=== PATIENT | male | born 1970 | race Two or more races ===

== ENCOUNTER 2017-05-29 12:52 | Emergency (ER) | payer OTHER ==
--- NOTE | 2017-05-29 15:33 | RADIOLOGY REPORT (SQ) ---
EXAM DESCRIPTION: CHEST PA/LAT COMPLETED DATE/TIME: 05/29/2017 3:17 pm REASON FOR STUDY: pain COMPARISON: 2014. TECHNIQUE: Frontal and lateral radiographic views of the chest acquired. NUMBER OF VIEWS: Two view. LIMITATIONS: None. FINDINGS: LUNGS AND PLEURA: No opacities, masses or pneumothorax. No pleural effusion. MEDIASTINUM AND HILAR STRUCTURES: No masses or contour abnormalities. HEART AND VASCULAR STRUCTURES: Heart normal size. No evidence for failure. BONES: No acute findings. HARDWARE: None in the chest. OTHER: No other significant finding. IMPRESSION: NO SIGNIFICANT RADIOGRAPHIC FINDING IN THE CHEST. TECHNICAL DOCUMENTATION: JOB ID: [id number] [employer]- All Rights Reserved
[2017-05-29 16:02] LABS: ABSOLUTE EOSINOPHILS # (AUTO) 0.1 10^3/uL (0.0-0.6); ABSOLUTE LYMPHOCYTES (AUTO) 1.9 10^3/uL (0.5-4.7); ABSOLUTE MONOCYTES (AUTO) 0.4 10^3/uL (0.1-1.4); ABSOLUTE NEUT (AUTO) 3.5 10^3/uL (1.7-8.2); BASOPHILS % (AUTO) 0.4 % (0-2); HEMATOCRIT 43.4 % (37.9-51.0); HEMOGLOBIN 14.9 g/dL (13.5-17.0); LYMPHOCYTES % (AUTO) 32.6 % (13-45); MEAN CORPUSCULAR HGB CONC 34.3 g/dL (32.0-36.0); MEAN CORPUSCULAR VOLUME 82 fl (80-97); PLATELET COUNT 171 10^3/uL (150-450); RED BLOOD COUNT 5.31 10^6/uL (4.35-5.55); RED CELL DISTRIBUTION WIDTH 13.9 % (11.5-14.0); TOTAL CELLS COUNTED % (AUTO) 100 %; WHITE BLOOD COUNT 5.9 10^3/uL (4.0-10.5)
[2017-05-29 16:24] LABS: ALANINE AMINOTRANSFERASE 38 U/L (21-72); ALBUMIN 4.5 g/dL (3.5-5.0); ALKALINE PHOSPHATASE 97 U/L (38-126); ANION GAP 11 (5-19); ASPARTATE AMINO TRANSFERASE 28 U/L (17-59); BILIRUBIN,DIRECT 0.1 mg/dL (0.0-0.4); BILIRUBIN,TOTAL 0.2 mg/dL (0.2-1.3); BLOOD UREA NITROGEN 15 mg/dL (7-20); CALCIUM 9.9 mg/dL (8.4-10.2); CARBON DIOXIDE 29 mmol/L (22-30); CHLORIDE 103 mmol/L (98-107); GLUCOSE 90 mg/dL (75-110); POTASSIUM 4.4 mmol/L (3.6-5.0); SODIUM 143.4 mmol/L (137-145); TOTAL PROTEIN 7.6 g/dL (6.3-8.2)
--- NOTE | 2017-05-29 17:44 | ER Document Report ---
ED Cardiac - General Chief Complaint: Chest Pain Stated Complaint: CHEST PAIN Time Seen by Provider: 05/29/17 14:45 Mode of Arrival: Ambulatory Information source: Patient Notes: Patient complains of substernal chest pain. He denies any trauma but does do 25 push-ups a day. 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 No previous cardiac history. The pain is worse with movement and better with rest. He denies any associated symptoms such as shortness of breath sweating or nausea. No cough cold or congestion. No other known trauma. No history of DVTs or PEs. No known radiation of the pain. The pain is mild to moderate and intermittent lasting several seconds at a time. no Previous cardiac evaluation. TRAVEL OUTSIDE OF THE [place] IN LAST 30 DAYS: No - Related Data Allergies/Adverse Reactions: No Known Allergies Allergy (Verified 05/29/17 12:53) Past Medical History - General Information source: Patient - Social History Smoking Status: Unknown if Ever Smoked Chew tobacco use (# tins/day): No Frequency of alcohol use: None Drug Abuse: None Family History: Reviewed & Not Pertinent Patient has suicidal ideation: No Patient has homicidal ideation: No Neurological Medical History: Reports: Hx Migraine Renal/ Medical History: Denies: Hx Peritoneal Dialysis - Immunizations Hx Diphtheria, Pertussis, Tetanus Vaccination: No Review of Systems - Review of Systems Constitutional: denies: Chills, Fever Cardiovascular: Chest pain. denies: Palpitations Respiratory: denies: Cough, Short of breath Gastrointestinal: denies: Abdominal pain, Vomiting -: Yes All other systems reviewed and negative Physical Exam - Vital signs Vitals: Temp Pulse Resp BP Pulse Ox 99.0 F 79 16 128/78 H 98 05/29/17 13:10 05/29/17 13:10 05/29/17 13:10 05/29/17 13:10 05/29/17 13:10 Interpretation: Normal - General General appearance: Appears well, Alert - HEENT Head: Normocephalic, Atraumatic Eyes: Normal Pupils: PERRL - Respiratory Respiratory status: No respiratory distress Chest status: Nontender Breath sounds: Normal Chest palpation: Normal - Cardiovascular Rhythm: Regular Heart sounds: Normal auscultation Murmur: No - Abdominal Inspection: Normal Distension: No distension Bowel sounds: Normal Tenderness: Nontender Organomegaly: No organomegaly - Back Back: Normal, Nontender - Extremities General upper extremity: Normal inspection, Nontender, Normal color, Normal ROM , Normal temperature General lower extremity: Normal inspection, Nontender, Normal color, Normal ROM , Normal temperature, Normal weight bearing. No: Junito's sign - Neurological Neuro grossly intact: Yes Cognition: Normal Orientation: AAOx4 Hammad Coma Scale Eye Opening: Spontaneous Hammad Coma Scale Verbal: Oriented Hammad Coma Scale Motor: Obeys Commands Hammad Coma Scale Total: 15 Speech: Normal Motor strength normal: LUE, RUE, LLE, RLE Sensory: Normal - Psychological Associated symptoms: Normal affect, Normal mood - Skin Skin Temperature: Warm Skin Moisture: Dry Skin Color: Normal Course - Vital Signs Vital signs: Temp Pulse Resp BP Pulse Ox 99.0 F 79 16 128/78 H 98 05/29/17 13:10 05/29/17 13:10 05/29/17 13:10 05/29/17 13:10 05/29/17 13:10 - Laboratory Result Diagrams: 05/29/17 15:40 05/29/17 15:40 - Diagnostic Test Radiology reviewed: Image reviewed, Reports reviewed - Chest x-ray shows no evidence of infiltrate or edema - EKG Interpretation by Ny EKG shows normal: Sinus rhythm Rate: Normal Rhythm: NSR Beaumont/QRS: No: Right axis deviation, Left axis deviation Discharge - Discharge Clinical Impression: Chest pain of unknown etiology Condition: Stable Disposition: HOME, SELF-CARE Instructions: Chest Pain of Unclear Cause ([facility]) Additional Instructions: Please call your primary care doctor as soon as possible to discuss an outpatient cardiac stress test Your blood pressure is mildly elevated. Please have this rechecked within 1 week by your doctor. Forms: Return to Work Referrals: LORETA LIRA MD [COMMUNITY BASED STAFF] - Follow up in 1 week
[2017-05-29 17:53] VITALS: BP 134/84
--- NOTE | 2017-05-29 22:36 | EKG REPORT ---
SEVERITY:- NORMAL ECG - SINUS RHYTHM : Confirmed by: Carli Evans 29-May-2017 22:34:59
== END 2017-05-29 17:52 | disposition home or self-care (01) ==
LOC: ER 12:52
DX: R07.9 Chest pain, unspecified (principal)
CPT/HCPCS: 36415; 71046; 80053; 84484; 85025; 93005; 93010; 99285

== ENCOUNTER 2019-02-16 12:09 | Emergency (ER) | payer OTHER ==
[2019-02-16 12:15] VITALS: BP 138/85
[2019-02-16] MEDS ORDERED: KETOROLAC TROMETHAMINE 60 MG/2 ML SDV IM ONE (12:24)
[2019-02-16] MEDS ORDERED: CYCLOBENZAPRINE HCL 10 MG TABLET PO ONE (12:24)
[2019-02-16] MEDS ORDERED: LIDOCAINE 5% (700 MG) TRANSDERMAL ADH..PATCH TP ONE (12:25)
--- NOTE | 2019-02-16 12:29 | ER Document Report ---
HPI - HPI Time Seen by Provider: 02/16/19 12:13 Context: Patient is a 48-year-old male presents emergency department with chief complaint of right shoulder pain. Patient reports 1 month ago he was seen at [facility] and diagnosed with a dislocated shoulder. Patient reports he did have to have this manipulated. Patient reports he has not had any issues since then. Patient reports yesterday he developed right shoulder pain. Patient reports he feels like he is having muscle spasms to the right lateral neck and right shoulder. Patient states he can move his shoulder in all directions but reports that it feels very tight around his neck. Patient reports he did take Robaxin yesterday which did seem to help some. Patient denies injury or any heavy lifting. Patient denies fall. Patient states he is concerned that it may be dislocated again. Patient denies numbness or tingling down the right arm. Past Medical History - General Information source: Patient - Social History Smoking Status: Unknown if Ever Smoked Lives with: Family Family History: Reviewed & Not Pertinent - Past Medical History Cardiac Medical History: Reports: None Pulmonary Medical History: Reports: None EENT Medical History: Reports: None Neurological Medical History: Reports: Hx Migraine Endocrine Medical History: Reports: None Renal/ Medical History: Reports: None. Denies: Hx Peritoneal Dialysis Malignancy Medical History: Reports None GI Medical History: Reports: None Musculoskeletal Medical History: Reports None Skin Medical History: Reports None Psychiatric Medical History: Reports: None Traumatic Medical History: Reports: None Infectious Medical History: Reports: None - Immunizations Hx Diphtheria, Pertussis, Tetanus Vaccination: No Vertical Provider Document - CONSTITUTIONAL Agree With Documented VS: Yes Exam Limitations: No Limitations General Appearance: No Apparent Distress - INFECTION CONTROL TRAVEL OUTSIDE OF THE [place] IN LAST 30 DAYS: No - HEENT HEENT: Atraumatic, Normocephalic, PERRLA - NECK Neck: Normal Inspection Notes: No cervical midline tenderness. Patient does have point tenderness to the trapezius muscle on the right side. - RESPIRATORY Respiratory: Breath Sounds Normal, No Respiratory Distress - CARDIOVASCULAR Cardiovascular: Regular Rate, Regular Rhythm - GI/ABDOMEN Gastrointestinal: Abdomen Soft, Abdomen Non-Tender, Normal Bowel Sounds - MUSCULOSKELETAL/EXTREMETIES Musculoskeletal/Extremeties: FROM, Non-Tender, No Edema Notes: Patient has full range of motion to the right shoulder. There is no obvious deformity, edema, ecchymosis. No point tenderness to the shoulder or clavicle. 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 Patient has a strong palpable right brachial and radial pulses - NEURO Level of Consciousness: Awake, Alert, Appropriate - DERM Integumentary: Warm, Dry Course - Re-evaluation Re-evalutation: 02/16/19 12:28 We will obtain an x-ray to rule out right shoulder fracture/dislocation. We will treat the patient with muscle relaxers and anti-inflammatories. 02/16/19 13:15 I did discuss the x-ray results with the patient. Patient was placed in splaying and given a muscle relaxers and anti-inflammatories. Patient reports the shoulder pain is worse with movement. Patient also reports the pain started about 1 week ago but has gotten worse over the past day. Patient states he was concerned because last time he felt like this he was told he had a dislocation. I did inform the patient that it is recommended that he get an MRI on an outpatient basis. Strict return precautions given to the patient. - Vital Signs Vital signs: Temp Pulse Resp BP Pulse Ox 99.4 F 106 H 16 138/85 H 97 02/16/19 12:13 02/16/19 12:13 02/16/19 12:13 02/16/19 12:13 02/16/19 12:13 - Diagnostic Test Radiology reviewed: Reports reviewed Radiology results interpreted by me: 02/16/19 12:57 Shoulder X-Ray 02/16/19 12:23 IMPRESSION: No acute fracture dislocation of the right shoulder. There is subchondral cystic change of the anterior inferior glenoid, in keeping with p rior trauma such as dislocation. Consider nonemergent MRI to further evaluate. Discharge - Discharge Clinical Impression: Right shoulder pain Qualifiers: Chronicity: acute Qualified Code(s): M25.511 - Pain in right shoulder Condition: Stable Disposition: HOME, SELF-CARE Additional Instructions: Today you are seen in the emergency department for right shoulder pain. The x- ray did not show an acute fracture or dislocation. You do have a subchondral cystic change of the anterior inferior glenoid. You also do have mild arthritis. The radiologist does recommend obtaining an MRI of the right sh oulder, your primary care physician can order this. I am placing you on anti- inflammatories as well as muscle relaxers. Do not drive on muscle relaxers as this can make you sleepy. Please wear the sling for comfort. Please return to the emergency department if symptoms change or worsen. Use ice packs to the injury. Shoulder Injury You have injured your shoulder. This usually results from stretching or tearing of the tendons during trauma. Time and protection are required in order to heal properly. Many injuries are quite disabling, and should be taken seriously. Initial treatment includes cold packs and a sling to rest the shoulder. The physician has assessed the seriousness of your injury, and has outlined a treatment plan. Understand that this treatment may change, depending on how you progress. If a re-examination was recommended, it is important that you follow up as instructed. Some shoulder injuries (such as partial tear of the rotator cuff) are only suspected after you've failed to improve. Call us if there's severe pain, numbness, or loss of function. Prescriptions: Cyclobenzaprine HCl [Flexeril 10 mg Tablet] 10 mg PO TID #15 tab Naproxen 500 mg PO BID PRN #14 tablet PRN Reason: Forms: Return to Work Referrals: [facility] [Provider Group] - Follow up as needed UYEN CRUZ MD [ACTIVE STAFF] - Follow up as needed RAFAEL HOWELL JR, DO [ACTIVE PROVISIONAL STAFF] - Follow up as needed ZANDRA LANE MD [ACTIVE PROVISIONAL STAFF] - Follow up as needed GAYLE SABILLON DO [ACTIVE STAFF] - Follow up as needed
--- NOTE | 2019-02-16 12:47 | RADIOLOGY REPORT (SQ) ---
EXAM DESCRIPTION: SHOULDER RIGHT 2 OR MORE VIEWS COMPLETED DATE/TIME: 02/16/2019 12:37 pm REASON FOR STUDY: right shoulder/clavicle pain, hx. dislocation COMPARISON: None. NUMBER OF VIEWS: Three views. TECHNIQUE: Internal rotation, external rotation, and Y view images acquired of the right shoulder. LIMITATIONS: None. FINDINGS: MINERALIZATION: Normal. BONES: No acute fracture. No worrisome bone lesions. Subchondral cystic change of the anterior infe rior glenoid. JOINTS: No dislocation. Mild acromioclavicular arthrosis. VISUALIZED LUNGS AND RIBS: No pneumothorax. No rib fracture. SOFT TISSUES: No radiopaque foreign body. OTHER: No other significant finding. IMPRESSION: No acute fracture dislocation of the right shoulder. There is subchondral cystic change of the anterior inferior glenoid, in keeping with prior trauma such as dislocation. Consider noneme rgent MRI to further evaluate. TECHNICAL DOCUMENTATION: JOB ID: [id number] [employer]- All Rights Reserved Reading location - IP/workstation name: [email or web address]
== END 2019-02-16 13:20 | disposition home or self-care (01) ==
LOC: ER 12:09
DX: M25.511 Pain in right shoulder (principal); M54.2 Cervicalgia; Z79.899 Other long term (current) drug therapy
CPT/HCPCS: 99283; 96374; 73030; J1885

== ENCOUNTER 2019-06-05 23:09 | Emergency (ER) | payer OTHER ==
--- NOTE | 2019-06-05 23:32 | ER Document Report ---
ED Medical Screen (RME) - General Chief Complaint: Constipation Stated Complaint: CONSTIPATION Time Seen by Provider: 06/05/19 23:30 Primary Care Provider: WAYNE ELLIS PA [Primary Care Provider] - Follow up as needed Notes: 48-year-old male presents with "severe constipation" patient states he was seen at [facility] yesterday and diagnosed with "severe constipation and intestinal obstruction" and was prescribed MiraLAX. Patient states now he is unable to pass gas. Abdomen tender diffusely throughout. Associated nausea. I have greeted and performed a rapid initial assessment of this patient. A comprehensive ED assessment and evaluation of the patient, analysis of test results and completion of the medical decision making process with be conducted by additional ED providers. TRAVEL OUTSIDE OF THE [place] IN LAST 30 DAYS: No - Related Data Allergies/Adverse Reactions: No Known Allergies Allergy (Verified 05/29/17 12:53) Past Medical History Neurological Medical History: Reports: Hx Migraine Renal/ Medical History: Denies: Hx Peritoneal Dialysis - Immunizations Hx Diphtheria, Pertussis, Tetanus Vaccination: No Doctor's Discharge - Discharge Referrals: WAYNE ELLIS PA [Primary Care Provider] - Follow up as needed
[2019-06-06 00:17] LABS: ABSOLUTE EOSINOPHILS # (AUTO) 0.1 10^3/uL (0.0-0.6); ABSOLUTE LYMPHOCYTES (AUTO) 1.9 10^3/uL (0.5-4.7); ABSOLUTE MONOCYTES (AUTO) 0.3 10^3/uL (0.1-1.4); BASOPHILS % (AUTO) 0.3 % (0-2); EOSINOPHILS % (AUTO) 1.6 % (0-6); HEMATOCRIT 42.3 % (37.9-51.0); HEMOGLOBIN 14.6 g/dL (13.5-17.0); LYMPHOCYTES % (AUTO) 35.5 % (13-45); MEAN CORPUSCULAR HEMOGLOBIN 28.5 pg (27.0-33.4); MEAN CORPUSCULAR HGB CONC 34.6 g/dL (32.0-36.0); MEAN CORPUSCULAR VOLUME 82 fl (80-97); MONOCYTES % (AUTO) 5.7 % (3-13); PLATELET COUNT 181 10^3/uL (150-450); RED BLOOD COUNT 5.14 10^6/uL (4.35-5.55); RED CELL DISTRIBUTION WIDTH 13.9 % (11.5-14.0); SEGMENTED NEUTROPHILS % (AUTO) 56.9 % (42-78); TOTAL CELLS COUNTED % (AUTO) 100 %; WHITE BLOOD COUNT 5.3 10^3/uL (4.0-10.5)
[2019-06-06 00:27] LABS: ALKALINE PHOSPHATASE 81 U/L (38-126); ANION GAP 8 (5-19); ASPARTATE AMINO TRANSFERASE 28 U/L (17-59); BILIRUBIN,DIRECT 0.3 mg/dL (0.0-0.4); BILIRUBIN,TOTAL 0.4 mg/dL (0.2-1.3); BLOOD UREA NITROGEN 13 mg/dL (7-20); CARBON DIOXIDE 32 mmol/L (22-30); CHLORIDE 99 mmol/L (98-107); GLUCOSE 84 mg/dL (75-110); POTASSIUM 4.3 mmol/L (3.6-5.0); TOTAL PROTEIN 7.2 g/dL (6.3-8.2)
--- NOTE | 2019-06-06 01:59 | RADIOLOGY REPORT (SQ) ---
EXAM DESCRIPTION: CT ABDOMEN PELVIS WITH IV CONTRAST COMPLETED DATE/TME: 06/06/2019 00:00 CLINICAL HISTORY: 48 years, Male, abd pain, constipation, no flatus, obstruction? COMPARISON: None. TECHNIQUE: Images stored on PACS. All CT scanners at this facility use dose modulation, iterative reconstruction, and/or weight based dosing when appropriate to reduce radiation dose to as low as reasonably achievable (ALARA). [facility]: Dose Right [facility]: CareDose [facility]: Dose Right [facility]: Teradose 4D [facility]: [place] LIMITATIONS: None. FINDINGS: Abdomen: The lung bases are grossly clear. The heart is of normal size. No evidence of pleural or pericardial fluid. The liver is of normal size contour and attenuation. The gallbladder is nondistended without inflammatory change. The pancreas is of grossly normal contour on this noncontrast examination. The spleen is unremarkable. The adrenals are unremarkable. The kidneys appear grossly normal without evidence of urolithiasis or hydronephrosis. There is no evidence of free air. No free fluid. No bulky adenopathy. Abdominal aorta is nonaneurysmal. Pelvis: The bowel is nonobstructed. Colon is unopacified with oral contrast. Small amount of fluid within the rectum.. Pelvic contents are unremarkable. The appendix is normal. Visualized bones are unremarkable. IMPRESSION: No acute intra-abdominal process is identified. TECHNICAL DOCUMENTATION: Quality ID # [id number]: Final reports with documentation of one or more dose reduction techniques (e.g., Automated exposure control, adjustment of the mA and/or kV according to patient size, use of iterative reconstruction technique) copyright 2011 [employer]- All Rights Reserved
[2019-06-06] MEDS ORDERED: MAGNESIUM CITRATE 296 ML BOTTLE PO ONE (05:00)
[2019-06-06] MEDS ORDERED: MINERAL OIL 30 ML UDCUP PR ONE (05:01)
--- NOTE | 2019-06-06 06:11 | ER Document Report ---
HPI - HPI Time Seen by Provider: 06/05/19 23:30 Pain Level: 5 - ROS Notes: 48-year-old male patient presenting to the emergency department with concern for constipation. Patient reports he was seen at [facility] yesterday and told he had severe constipation with a possible intestinal blockage and was told to go home and take MiraLAX. Patient reports he has taken 1 dose of MiraLAX and also did a fleets enema with minimal relief. Patient denies any vomiting or nausea. He denies any history of bowel surgery or bowel blockages. - REPRODUCTIVE Reproductive: DENIES: : Past Medical History - General Information source: Patient - Social History Smoking Status: Former Smoker Frequency of alcohol use: None Drug Abuse: None Family History: Reviewed & Not Pertinent Patient has suicidal ideation: No Patient has homicidal ideation: No Neurological Medical History: Reports: Hx Migraine Renal/ Medical History: Denies: Hx Peritoneal Dialysis - Immunizations Hx Diphtheria, Pertussis, Tetanus Vaccination: No Vertical Provider Document - CONSTITUTIONAL Notes: PHYSICAL EXAMINATION: GENERAL: Well-appearing, well-nourished and in no acute distress. HEAD: Atraumatic, normocephalic. EYES: Pupils equal round and reactive to light, extraocular movements intact, sclera anicteric, conjunctiva are normal. ENT: Nares patent, oropharynx clear without exudates. Moist mucous membranes. NECK: Normal range of motion, supple without lymphadenopathy LUNGS: Breath sounds clear to auscultation bilaterally and equal. No wheezes rales or rhonchi. HEART: Regular rate and rhythm without murmurs ABDOMEN: Soft, nontender, nondistended abdomen. No guarding, no rebound. No masses appreciated. Musculoskeletal: Normal range of motion, no pitting or edema. No cyanosis. NEUROLOGICAL: Cranial nerves grossly intact. Normal speech, normal gait. Normal sensory, motor exams PSYCH: Normal mood, normal affect. SKIN: Warm, Dry, normal turgor, no rashes or lesions noted. - INFECTION CONTROL TRAVEL OUTSIDE OF THE [place] IN LAST 30 DAYS: No Course - Re-evaluation Re-evalutation: Patient appears well, nontoxic. No bowel blockage evident on CT. Labs unremarkable. Patient has not any nausea or vomiting. He does state that over the past few months he has been doing intermittent fasting. Patient reports he has been fasting for 7 days at a time. He states he is drinking 416 ounce bottles of water per day. This is likely the cause of his constipation. He will be given an enema as well as MiraLAX and discharged home. Strict ED return precautions were discussed. - Vital Signs Vital signs: Temp Pulse Resp BP Pulse Ox 97.9 F 66 14 136/85 H 100 06/06/19 03:58 06/06/19 03:58 06/06/19 03:58 06/06/19 03:58 06/06/19 03:58 - Laboratory Result Diagrams: 06/05/19 23:56 06/05/19 23:56 Laboratory results interpreted by me: 06/05/19 23:56 Carbon Dioxide 32 H Discharge - Discharge Clinical Impression: Abdominal pain Qualifiers: Abdominal location: generalized Qualified Code(s): R10.84 - Generalized abdominal pain Condition: Stable Disposition: HOME, SELF-CARE Additional Instructions: Abdominal Pain There are many causes of abdominal pain. Pain can mean a serious problem requiring surgery (such as appendicitis). It can also be an innocent problem that goes away on its own (such as a viral infection). Often, time must pass to determine the cause of pain. The physician does not feel that hospitalization is necessary, at present. Things may change within the next 24 hours. Call the doctor or come back for re- examination if any problems occur, such as: (1) Pain that becomes more severe, steady, or becomes concentrated in one specific area. Also, pain that is more severe with movement or coughing. (2) Vomiting that persists or becomes more frequent. (3) Blood in the vomitus, urine, or bowel movements. Blood in the stool may have a tarry or black appearance. (4) Shaking chills or fever greater than 100 degrees F. (5) The abdomen becomes more distended or swollen. (6) Bowel movements cease. (7) Failure to improve as expected. Please continue to drink plenty of fluids. I do not think it is a good idea to have 7 days of fasting. Please speak with your primary care doctor for further guidance before attempting this. If you feel like you are constipated for the next 2 to 3 days please take MiraLAX 1 capful twice daily. Return to the emergency department with new or worsening symptoms to include development of fever or vomiting. Referrals: TROYON,WAYNE A, PA [Primary Care Provider] - Follow up as needed
[2019-06-06 06:23] LABS: APPEARANCE,URINE CLEAR; BILIRUBIN,URINE NEGATIVE (NEGATIVE); COLOR,URINE STRAW; GLUCOSE, URINE NEGATIVE (NEGATIVE); KETONES,URINE NEGATIVE (NEGATIVE); PROTEIN,URINE NEGATIVE (NEGATIVE); URINE SPECIFIC GRAVITY 1.026
[2019-06-06 07:05] VITALS: BP 115/86
== END 2019-06-06 07:05 | disposition home or self-care (01) ==
LOC: ER 23:09
DX: R10.84 Generalized abdominal pain (principal); K59.00 Constipation, unspecified
CPT/HCPCS: 99284; 36415; 83690; 85025; 80053; 81001; 74177; J3490 ×2

== ENCOUNTER 2019-11-06 20:04 | Emergency (ER) | payer OTHER ==
--- NOTE | 2019-11-06 21:38 | ER Document Report ---
ED Medical Screen (RME) - General Chief Complaint: High Blood Pressure Stated Complaint: HIGH BLOOD PRESSURE HANDS TINGLING Time Seen by Provider: 11/06/19 21:36 Primary Care Provider: WAYNE ELLIS PA [Primary Care Provider] - Follow up as needed Mode of Arrival: Ambulatory Information source: Patient Notes: 49-year-old male presents to ED for elevated blood pressure. His blood pressure is 160/104 in the pit area. He states the main reason he is here is because he has intense itching that he cannot stand. He states he had this intense itching x2 months. He states that is just worse and he just cannot take it he states that any change in temperature makes his itching worse. He has a history of chronic pain, chronic muscle spasms, a abdominal mass on the right side that is he has been told was adipose tissue. He has a severe history of constipation. He states he does not smoke drink or do any drugs. But he is mostly worried and talking about his itching is his worst problem. Patient is alert oriented respirations regular nonlabored speaking in full sentences. I have greeted and performed a rapid initial assessment of this patient. A comprehensive ED assessment and evaluation of the patient, analysis of test results and completion of medical decision making process will be conducted by an additional ED providers. TRAVEL OUTSIDE OF THE [place] IN LAST 30 DAYS: No - Related Data Allergies/Adverse Reactions: No Known Allergies Allergy (Verified 05/29/17 12:53) Past Medical History Neurological Medical History: Reports: Hx Migraine Renal/ Medical History: Denies: Hx Peritoneal Dialysis - Immunizations Hx Diphtheria, Pertussis, Tetanus Vaccination: No Physical Exam - Vital signs Vitals: Temp Pulse Resp BP Pulse Ox 98.5 F 108 H 20 162/103 H 98 11/06/19 20:11 11/06/19 20:11 11/06/19 20:11 11/06/19 20:11 11/06/19 20:11 Course - Vital Signs Vital signs: Temp Pulse Resp BP Pulse Ox 98.5 F 108 H 20 162/103 H 98 11/06/19 20:11 11/06/19 20:11 11/06/19 20:11 11/06/19 20:11 11/06/19 20:11 Doctor's Discharge - Discharge Referrals: WAYNE ELLIS PA [Primary Care Provider] - Follow up as needed
--- NOTE | 2019-11-06 22:36 | RADIOLOGY REPORT (SQ) ---
EXAM DESCRIPTION: XR ABDOMEN SUPINE AND ERECT WITH CHEST (ABD ACUTE SERIES) COMPLETED DATE/TME: 11/06/2019 21:39 CLINICAL HISTORY: 49 years Male, Chronic constipation with increase in pain Comparison:Jun 06 2019, CT NUMBER OF VIEWS/TECHNIQUE: 3 LIMITATIONS: None. FINDINGS: Intestinal gas pattern is within normal limits. Paucity of bowel gas. Colonic stool retention. No suspicious calcification. Grossly intact skeletal structures. No acute cardiopulmonary findings. IMPRESSION: No acute findings.
[2019-11-07 02:41] LABS: ABSOLUTE EOSINOPHILS # (AUTO) 0.1 10^3/uL (0.0-0.6); ABSOLUTE LYMPHOCYTES (AUTO) 2.3 10^3/uL (0.5-4.7); ABSOLUTE MONOCYTES (AUTO) 0.3 10^3/uL (0.1-1.4); ABSOLUTE NEUT (AUTO) 3.4 10^3/uL (1.7-8.2); BASOPHILS % (AUTO) 0.6 % (0-2); EOSINOPHILS % (AUTO) 1.1 % (0-6); HEMATOCRIT 42.7 % (37.9-51.0); HEMOGLOBIN 14.8 g/dL (13.5-17.0); LYMPHOCYTES % (AUTO) 37.7 % (13-45); MEAN CORPUSCULAR HEMOGLOBIN 28.2 pg (27.0-33.4); MEAN CORPUSCULAR HGB CONC 34.6 g/dL (32.0-36.0); MEAN CORPUSCULAR VOLUME 81 fl (80-97); MONOCYTES % (AUTO) 5.4 % (3-13); PLATELET COUNT 174 10^3/uL (150-450); RED BLOOD COUNT 5.24 10^6/uL (4.35-5.55); RED CELL DISTRIBUTION WIDTH 13.8 % (11.5-14.0); SEGMENTED NEUTROPHILS % (AUTO) 55.2 % (42-78); TOTAL CELLS COUNTED % (AUTO) 100 %; WHITE BLOOD COUNT 6.1 10^3/uL (4.0-10.5)
--- NOTE | 2019-11-07 02:51 | ER Document Report ---
ED General - General Chief Complaint: High Blood Pressure Stated Complaint: HIGH BLOOD PRESSURE HANDS TINGLING Time Seen by Provider: 11/06/19 21:36 Primary Care Provider: DEBBY AYALA MD [ACTIVE STAFF] - Follow up as needed WAYNE ELLIS PA [Primary Care Provider] - Follow up as needed Mode of Arrival: Ambulatory Notes: 11/07/19 02:41 - ED Nursing Note by MAYURI RHODES [facility] Num: [id number] : 1970 Patient Age: 49 patient presents to ED for c/o high blood pressure and itching. patient states he has been experiencing high blood pressure for past few days and does not have a hx of it. patient states he gets headaches when it is high. patient also states he has been having periods of itchiness as well but is unsure of what could be causing it. patient alert and oriented, in NAD. Nora notes 49-year-old male presents to ED for elevated blood pressure. His blood pressure is 160/104 in the pit area. He states the main reason he is here is because he has intense itching that he cannot stand. He states he had this intense itching x2 months. He states that is just worse and he just cannot take it he states that any change in temperature makes his itching worse. He has a history of chronic pain, chronic muscle spasms, a abdominal mass on the right side that is he has been told was adipose tissue. He has a severe history of constipation. He states he does not smoke drink or do any drugs. But he is mostly worried and talking about his itching is his worst problem. Patient is alert oriented respirations regular nonlabored speaking in full sentences. my notes 49-year-old descent male arrives with a history of 2 months of diffuse pruritic skin that becomes hives while he is in hot water or out in the hot heat of the sun. He reports the hives resolved with cold water or cool environment. Patient is on gabapentin Mobic diclofenac Atarax PEG methocarbamol Benadryl. He takes bisacadyl for stool problems. He also complains of pain to his right anterior ribs and was told he has a lipoma around these areas. TRAVEL OUTSIDE OF THE [place] IN LAST 30 DAYS: No - HPI Onset: Other - 2 months of hives and itchy skin. Onset/Duration: Sudden, Persistent Quality of pain: Achy - Left upper quadrant palpitations when laying down. Severity: Mild Associated symptoms: Body/muscle aches Exacerbated by: Movement Similar symptoms previously: Yes - Patient was seen by [facility] several weeks ago. Recently seen / treated by doctor: No - Related Data Allergies/Adverse Reactions: No Known Allergies Allergy (Verified 05/29/17 12:53) Past Medical History - General Information source: Patient - Social History Smoking Status: Never Smoker Cigarette use (# per day): No Chew tobacco use (# tins/day): No Smoking Education Provided: No Frequency of alcohol use: Occasional Lives with: Family Family History: Reviewed & Not Pertinent Patient has suicidal ideation: No Patient has homicidal ideation: No Neurological Medical History: Reports: Hx Migraine Renal/ Medical History: Denies: Hx Peritoneal Dialysis - Immunizations Hx Diphtheria, Pertussis, Tetanus Vaccination: No Review of Systems - Review of Systems Constitutional: See HPI, Weakness EENT: No symptoms reported Cardiovascular: No symptoms reported Respiratory: No symptoms reported Gastrointestinal: See HPI, Abdominal pain Genitourinary: No symptoms reported Male Genitourinary: No symptoms reported Musculoskeletal: No symptoms reported Skin: See HPI, Rash Hematologic/Lymphatic: No symptoms reported Neurological/Psychological: No symptoms reported Physical Exam - Vital signs Vitals: Temp Pulse Resp BP Pulse Ox 98.5 F 108 H 20 162/103 H 98 11/06/19 20:11 11/06/19 20:11 11/06/19 20:11 11/06/19 20:11 11/06/19 20:11 Interpretation: Hypertensive, Tachycardic - General General appearance: Alert - HEENT Head: Normocephalic - Just back from [place], Atraumatic Eyes: Normal Extraocular movements intact: Yes Pupils: PERRL Mucous membranes: Other - Heavily bearded male Pharynx: Normal Neck: Normal - Respiratory Respiratory status: No respiratory distress Chest status: Nontender Breath sounds: Normal Chest palpation: Normal - Cardiovascular Rhythm: Regular Heart sounds: Normal auscultation Murmur: No - Abdominal Inspection: Normal Distension: No distension Tenderness: Tender - Right anterior ribs with mild tenderness no lipoma noted. - Rectal Prostate: Other - de deeperferred - Genitourinary Scrotum: Other - deferred - Back Back: Normal - Extremities General upper extremity: Normal inspection General lower extremity: Normal inspection - Neurological Neuro grossly intact: Yes Cognition: Normal Orientation: AAOx4 [place] Coma Scale Eye Opening: Spontaneous Hammad Coma Scale Verbal: Oriented [place] Coma Scale Motor: Obeys Commands [place] Coma Scale Total: 15 Speech: Normal Motor strength normal: LUE, RUE, LLE, RLE Sensory: Normal - Psychological Associated symptoms: Anxious - Skin Skin Temperature: Warm Skin irregularity: Lesion Course - Vital Signs Vital signs: Temp Pulse Resp BP Pulse Ox 98.6 F 85 16 146/98 H 98 11/07/19 01:25 11/07/19 01:25 11/07/19 01:25 11/07/19 01:25 11/07/19 01:25 - Laboratory Result Diagrams: 11/07/19 02:31 11/07/19 02:31 Laboratory results interpreted by me: 11/07/19 02:55 Urine Protein 30 H Urine Urobilinogen 4.0 H - Diagnostic Test Radiology reviewed: Reports reviewed - Colonic stool noticed by radiologist otherwise NAD - EKG Interpretation by Me EKG shows normal: Sinus rhythm Rate: Normal Rhythm: Other - 79 bpm Critical Care Note - Critical Care Note Comments: I discussed x-ray and lab findings with patient. Patient was asking me to give him some pain medicine to replace his Mobic meloxicam and diclofenac and I advised him that he should go to his doctor about this because we were advising him that these are possible etiologies for his hives. He then asked about the lipoma of his right anterior ribs and I advised that I cannot feel a lipoma t here but those are rib areas that are susceptible to costochondritis. If he feels he must use a nonsteroidal he can take Voltaren gel [id number] now for $11. He is more concerned that this may cause more problems and I advised him to follow-up with his family doctor about this. 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 He must follow-up with his family doctor about this. He is hesitant to use any gels over the skin because of his hives. I do not see any hives today but he reports when he gets hot they do pop out. The nonsteroidals he is taking also may be harmful to his kidneys and helping him to have increased hypertension. I will write him for Parafon forte Discharge - Discharge Clinical Impression: History of heat urticaria, Costochondritis Hypertension Qualifiers: Hypertension type: unspecified Qualified Code(s): I10 - Essential (primary) hypertension Condition: Good Disposition: HOME, SELF-CARE Additional Instructions: Follow-up with Dr. Ayala esthetician permanent makeup artist and take medicines as directed. Try to avoid using diclofenac and Mobic and antiinflammatories to establish whether these are causing your urticaria hives. We will attempt to use Cytotec for your stomach and stool problems as well as establish whether there are any hives secondary to the nonsteroidals above. Try to take your blood pressure on a daily basis and present these to your doctor and esthetician permanent makeup artist. Dr. Ayala may be interested in your blood pressure as well. Prescriptions: Misoprostol [Cytotec 0.2 mg Tablet] 0.2 mg PO BID #20 tablet Chlorzoxazone [Parafon Forte Dsc 500 Mg Tablet] 500 mg PO BID PRN #20 tablet PRN Reason: Pain Scale Of 1 Forms: Return to Work Referrals: WAYNE ELLIS PA [Primary Care Provider] - Follow up as needed DEBBY AYALA MD [ACTIVE STAFF] - Follow up as needed
[2019-11-07 03:09] LABS: APPEARANCE,URINE SLIGHTLY-CLOUDY; BILIRUBIN,URINE NEGATIVE (NEGATIVE); COLOR,URINE YELLOW; GLUCOSE, URINE NEGATIVE (NEGATIVE); KETONES,URINE NEGATIVE (NEGATIVE); LEUKOCYTE ESTERASE,URINE NEGATIVE (NEGATIVE); NITRITE,URINE NEGATIVE (NEGATIVE); PROTEIN,URINE 30 mg/dL (NEGATIVE); URINE SPECIFIC GRAVITY 1.024
[2019-11-07 03:09] LABS: ALBUMIN 4.6 g/dL (3.5-5.0); ALKALINE PHOSPHATASE 88 U/L (38-126); ANION GAP 9 (5-19); ASPARTATE AMINO TRANSFERASE 48 U/L (17-59); BILIRUBIN,TOTAL 0.5 mg/dL (0.2-1.3); BLOOD UREA NITROGEN 16 mg/dL (7-20); CALCIUM 9.6 mg/dL (8.4-10.2); CARBON DIOXIDE 30 mmol/L (22-30); CHLORIDE 104 mmol/L (98-107); GLUCOSE 94 mg/dL (75-110); POTASSIUM 4.7 mmol/L (3.6-5.0); TOTAL PROTEIN 7.9 g/dL (6.3-8.2)
[2019-11-07] MEDS ORDERED: DEXAMETHASONE SOD PHOS INJ 10 MG/1 ML VIAL IM ONE (03:20)
[2019-11-07] MEDS ORDERED: MISOPROSTOL 0.2 MG TABLET PO ONE (03:23)
[2019-11-07] MEDS ORDERED: CLONIDINE HCL 0.1 MG TABLET PO ONE (03:24)
[2019-11-07 03:54] VITALS: BP 172/95
--- NOTE | 2019-11-07 13:23 | EKG REPORT ---
SEVERITY:- ABNORMAL ECG - SINUS RHYTHM LEFT BUNDLE BRANCH BLOCK : Confirmed by: Henry Carlisle MD 07-Nov-2019 13:22:31
== END 2019-11-07 04:07 | disposition home or self-care (01) ==
LOC: ER 20:04
DX: M94.0 Chondrocostal junction syndrome [Tietze] (principal); I10 Essential (primary) hypertension; R20.0 Anesthesia of skin; R51 Headache; M79.10 Myalgia, unspecified site; R53.1 Weakness; R10.9 Unspecified abdominal pain
CPT/HCPCS: 93005; 99284; 96372; 36415; 85025; 80053; 81001; 74022; 93010; J1100

== ENCOUNTER 2020-03-23 00:12 | Emergency (ER) | payer OTHER ==
--- NOTE | 2020-03-23 02:52 | ER Document Report ---
ED Cardiac - General Chief Complaint: Chest Pressure Stated Complaint: CHEST PRESSURE,RIGHT SHOULDER PAIN Time Seen by Provider: 03/23/20 02:51 Primary Care Provider: DEBBY AYALA MD [ACTIVE STAFF] - 03/24/20 Notes: Patient is a 49-year-old male who comes emergency department for chief complaint of chest pain. He states that he has been feeling pains that feel like "pressure and pulsations" in the left side of his chest and up and down his back for about 3 weeks now. He states he feels these daily. He states that he is very concerned there is something wrong and he is having trouble sleeping. He states it keeps him anxious all the time. He states that he was evaluated here for chest pain, discharged, sent to cardiology, he states the traveling crane operator stated they wanted to "do some tests", he states he is part of the [place] system and [facility] but that they somehow lost the recommendation paperwork and he never was referred to cardiology through the [facility] after that. He denies ever having a stress test or cardiac catheterization, denies history of [place]. Past medical history of hypertension on carvedilol, anxiety and depression on Vistaril and fluoxetine. He denies diabetes, he denies any other medical history. He denies personal family history of [place]. TRAVEL OUTSIDE OF THE [place] IN LAST 30 DAYS: No - Related Data Allergies/Adverse Reactions: No Known Allergies Allergy (Verified 05/29/17 12:53) Home Medications: Atarax, Carvedilol, Bisacodyl Past Medical History - General Information source: Patient - Social History Smoking Status: Former Smoker Frequency of alcohol use: None Drug Abuse: None Lives with: Family Family History: Reviewed & Not Pertinent - Past Medical History Cardiac Medical History: Reports: Hx Hypertension Neurological Medical History: Reports: Hx Migraine Renal/ Medical History: Denies: Hx Peritoneal Dialysis Psychiatric Medical History: Reports: Hx Anxiety, Hx Depression - Immunizations Hx Diphtheria, Pertussis, Tetanus Vaccination: No Review of Systems - Review of Systems Constitutional: No symptoms reported EENT: No symptoms reported Cardiovascular: See HPI Respiratory: No symptoms reported Gastrointestinal: No symptoms reported Genitourinary: No symptoms reported Male Genitourinary: No symptoms reported Musculoskeletal: See HPI Skin: No symptoms reported Hematologic/Lymphatic: No symptoms reported Neurological/Psychological: No symptoms reported Physical Exam - Vital signs Vitals: Temp Pulse Resp BP Pulse Ox 98.2 F 94 20 167/111 H 99 03/23/20 00:33 03/23/20 00:33 03/23/20 00:33 03/23/20 00:33 03/23/20 00:33 - Notes Notes: GENERAL: Very anxious but does not appear to be in distress HEAD: Normocephalic, atraumatic. EYES: Pupils equal, round, and reactive to light. Extraocular movements intact. ENT: Oral mucosa moist, tongue midline. Oropharynx unremarkable. Airway patent. NECK: Full range of motion. Supple. Trachea midline. No lymphadenopathy. LUNGS: Clear to auscultation bilaterally, no wheezes, rales, or rhonchi. No respiratory distress. Non-tender chest wall. HEART: Regular rate and rhythm. No murmur ABDOMEN: Soft, non-tender. Non-distended. Bowel sounds present in all 4 quadrants. GENITOURINARY: Deferred EXTREMITIES: Painful range of motion of the right shoulder with inability to f ully perform the range of motion of this. Tenderness over the posterior shoulder extending to the trapezius muscle as well and to the supraspinatus. Otherwise unremarkable upper and lower extremities. BACK: See extremities exam. No cervical, thoracic, lumbar midline tenderness. No saddle anesthesia, normal distal neurovascular exam. Moves all extremities in full range of motion. NEUROLOGICAL: Alert and oriented x3. Normal speech. Cranial nerves II through XII grossly intact. Strength 5/5 in all extremities. PSYCH: Speaks anxiously rapidly, occasionally almost tearfully SKIN: Warm, dry, normal turgor. No rashes or lesions noted. Course - Re-evaluation Re-evalutation: Patient was extremely anxious on initial evaluation, he was also hypertensive. He was talking rapidly and nonstop. He does not have chest wall tenderness but he does have very specific and reproducible muscle spasms in his upper back, also in the right shoulder area. No trauma to the area. Range of motion slightly limited over the right shoulder. This was significantly improved after Valium and patient calmed down with normalization of blood pressure after Valium as well. Patient was very appreciative. EKG unremarkable, troponin negative, troponin cycled and negative. Remaining work-up unremarkable. Chest x-ray unremarkable. I discussed with patient. Patient is very much hoping to be evaluated by cardiology and have a stress test, however he is very stressed about his lack of ability to do so through the [facility]. His heart score is 2, he does not require admission per this criteria. I called and spoke with Dr. Ayala, cardiology on-call. He states that his office is experienced with handling the [facility] paperwork for him to get clearance to have a stress test, he does agree the patient should have a stress test, he states the patient can be discharged, follow-up with his office, and they will attempt to help him in this manner. Patient was very appreciative of this. Patient was medicated with additional diazepam because this worked so well after discussed precautions. Patient states great appreciation and satisfaction with plan. Stable and well-appearing at time of discharge. - Vital Signs Vital signs: Temp Pulse Resp BP Pulse Ox 97.9 F 94 18 119/77 98 03/23/20 06:00 03/23/20 00:33 03/23/20 07:00 03/23/20 07:00 03/23/20 07:00 - Laboratory Result Diagrams: 03/23/20 03:24 03/23/20 03:24 Laboratory results interpreted by me: 03/23/20 03:24 Carbon Dioxide 32 H ALT 58 H - EKG Interpretation by Me Additional EKG results interpreted by me: EKG shows sinus rhythm at a rate of 96, QTc 430, normal axis, flattened T waves inferiorly but no T wave inversions or ST segment changes in consecutive leads Discharge - Discharge Clinical Impression: Anxiety, Muscle spasm Chest pain Qualifiers: Chest pain type: unspecified Qualified Code(s): R07.9 - Chest pain, unspecified Shoulder pain Qualifiers: Chronicity: acute Laterality: unspecified laterality Qualified Code(s): M25.519 - Pain in unspecified shoulder Condition: Stable Disposition: HOME, SELF-CARE Additional Instructions: Your testing for your chest pain does not show any concerning findings at this time. However I spoke to Dr. Ayala, recommendation is for you to call the office for close follow-up within 2 days and for you to have stress testing performed. Please call the listed referral to be seen, evaluated, and treated. Your evaluation also is consistent with a musculoskeletal source and muscle spasms especially in your right trapezius muscles and shoulder. You can take [id number] medication for this, you can also take the prescribed muscle relaxer at night using the precautions listed only if needed as a muscle relaxer. You can apply heat over the area and perform gentle stretches. Follow-up with [facility]opedics or the [facility] in regards to this. Return if you worsen including severe worsening pain, difficulty breathing, f ever, passing out, or any other concerning symptoms. Prescriptions: Diazepam [Valium 5 mg Tablet] 5 mg PO TID PRN #10 tablet PRN Reason: Referrals: DEBBY AYALA MD [ACTIVE STAFF] - 03/24/20
[2020-03-23] MEDS ORDERED: DIAZEPAM 5 MG TABLET PO ONE (03:07)
[2020-03-23] MEDS ORDERED: ASPIRIN 81 MG TABLET, CHEWABLE PO ONE (03:07)
[2020-03-23 03:34] LABS: ABSOLUTE LYMPHOCYTES (AUTO) 2.1 10^3/uL (0.5-4.7); ABSOLUTE MONOCYTES (AUTO) 0.4 10^3/uL (0.1-1.4); ABSOLUTE NEUT (AUTO) 4.6 10^3/uL (1.7-8.2); BASOPHILS % (AUTO) 0.6 % (0-2); EOSINOPHILS % (AUTO) 0.5 % (0-6); HEMATOCRIT 44.4 % (37.9-51.0); HEMOGLOBIN 14.8 g/dL (13.5-17.0); LYMPHOCYTES % (AUTO) 29.7 % (13-45); MEAN CORPUSCULAR HEMOGLOBIN 27.8 pg (27.0-33.4); MEAN CORPUSCULAR HGB CONC 33.4 g/dL (32.0-36.0); MEAN CORPUSCULAR VOLUME 83 fl (80-97); MONOCYTES % (AUTO) 5.1 % (3-13); PLATELET COUNT 177 10^3/uL (150-450); RED BLOOD COUNT 5.35 10^6/uL (4.35-5.55); SEGMENTED NEUTROPHILS % (AUTO) 64.1 % (42-78); TOTAL CELLS COUNTED % (AUTO) 100 %; WHITE BLOOD COUNT 7.1 10^3/uL (4.0-10.5)
--- NOTE | 2020-03-23 03:54 | RADIOLOGY REPORT (SQ) ---
CLINICAL HISTORY: chest pain COMPARISON: 05/29/2017. TECHNIQUE: XR CHEST 1 VIEW 03/23/2020 3:12 AM NNP FINDINGS: Cardiac silhouette is normal in size. Lungs are clear without consolidation, atelectasis, mass or edema. There is no pleural effusion. There is no pneumothorax. There are no acute osseous findings. IMPRESSION: Clear lungs.
[2020-03-23 04:07] LABS: ALBUMIN 4.4 g/dL (3.5-5.0); ALKALINE PHOSPHATASE 113 U/L (38-126); ANION GAP 7 (5-19); ASPARTATE AMINO TRANSFERASE 38 U/L (17-59); BILIRUBIN,DIRECT 0.2 mg/dL (0.0-0.4); BILIRUBIN,TOTAL 0.4 mg/dL (0.2-1.3); BLOOD UREA NITROGEN 14 mg/dL (7-20); CALCIUM 9.4 mg/dL (8.4-10.2); CARBON DIOXIDE 32 mmol/L (22-30); CHLORIDE 103 mmol/L (98-107); GLUCOSE 109 mg/dL (75-110); POTASSIUM 4.3 mmol/L (3.6-5.0); TOTAL PROTEIN 7.6 g/dL (6.3-8.2)
--- NOTE | 2020-03-23 06:39 | EKG REPORT ---
SEVERITY:- BORDERLINE ECG - SINUS RHYTHM BORDERLINE T ABNORMALITIES, DIFFUSE LEADS : Confirmed by: Ted Kyle MD 23-Mar-2020 06:38:16
[2020-03-23 07:06] VITALS: BP 119/77
== END 2020-03-23 08:03 | disposition home or self-care (01) ==
LOC: ER 00:12
DX: R07.9 Chest pain, unspecified (principal); F41.9 Anxiety disorder, unspecified; M62.838 Other muscle spasm; M25.511 Pain in right shoulder; M54.9 Dorsalgia, unspecified; I10 Essential (primary) hypertension; Z79.899 Other long term (current) drug therapy; Z87.891 Personal history of nicotine dependence
CPT/HCPCS: 36415; 71045; 80053; 84484; 85025; 93005; 93010; 99285

== ENCOUNTER 2020-04-27 17:32 | Emergency (ER) | payer OTHER ==
--- NOTE | 2020-04-27 18:21 | ER Document Report ---
ED Medical Screen (RME) - General Chief Complaint: Chest Pain Stated Complaint: CHEST PAIN Time Seen by Provider: 04/27/20 18:11 Primary Care Provider: WAYNE ELLIS PA [Primary Care Provider] - Follow up as needed Mode of Arrival: Ambulatory Information source: Patient TRAVEL OUTSIDE OF THE [place] IN LAST 30 DAYS: No - HPI Patient complains to provider of: CHest Pain Notes: 04/27/20 18:19 Patient with complaints of chest pain. The patient states has been having exertional chest pain intermittently for the last several weeks. He states that he followed up with Dr. Carlisle and was told he may have a left bundle branch block. He reports having an echocardiogram but does not have the results of that yet. States that today he was having some cramps all over his body with some cramps in his chest and down his left arm. Patient has a history of hypertension. He denies any history of hypercholesterolemia, diabetes, CAD. He denies any recent long trips or surgeries, leg swelling, cancer, history of DVT or PE. Exam: Nontoxic, no distress. Lungs clear throughout. Heart sounds normal. No lower extremity edema. An initial examination was made on the patient as part of the triage process, and it was determined a more comprehensive evaluation was necessary. Initial labs were ordered and patient was transferred to another provider in the ED who assumed care and finished evaluation and plan. - Related Data Allergies/Adverse Reactions: No Known Allergies Allergy (Verified 05/29/17 12:53) Past Medical History - Past Medical History Cardiac Medical History: Reports: Hx Hypertension Neurological Medical History: Reports: Hx Migraine Renal/ Medical History: Denies: Hx Peritoneal Dialysis Psychiatric Medical History: Reports: Hx Anxiety, Hx Depression - Immunizations Hx Diphtheria, Pertussis, Tetanus Vaccination: No Physical Exam - Vital signs Vitals: Temp Pulse Resp BP Pulse Ox 98.7 F 93 20 150/98 H 100 04/27/20 17:42 04/27/20 17:42 04/27/20 17:42 04/27/20 17:42 04/27/20 17:42 Course - Vital Signs Vital signs: Temp Pulse Resp BP Pulse Ox 98.7 F 93 20 150/98 H 100 04/27/20 17:42 04/27/20 17:42 04/27/20 17:42 04/27/20 17:42 04/27/20 17:42 Doctor's Discharge - Discharge Referrals: WAYNE ELLIS PA [Primary Care Provider] - Follow up as needed
--- NOTE | 2020-04-27 18:42 | RADIOLOGY REPORT (SQ) ---
EXAM DESCRIPTION: CHEST 2 VIEWS IMAGES COMPLETED DATE/TIME: 04/27/2020 6:28 pm REASON FOR STUDY: CP COMPARISON: 03/23/2020 EXAM PARAMETERS: NUMBER OF VIEWS: two views TECHNIQUE: Digital Frontal and Lateral radiographic views of the chest acquired. RADIATION DOSE: NA LIMITATIONS: none FINDINGS: LUNGS AND PLEURA: No opacities, masses or pneumothorax. No pleural effusion. MEDIASTINUM AND HILAR STRUCTURES: No masses or contour abnormalities. HEART AND VASCULAR STRUCTURES: Heart normal size. No evidence for failure. BONES: No acute findings. HARDWARE: None in the chest. OTHER: No other significant finding. IMPRESSION: NO ACUTE RADIOGRAPHIC FINDING IN THE CHEST. TECHNICAL DOCUMENTATION: JOB ID: [id number] 2010 [employer]- All Rights Reserved Reading location - IP/workstation name: [email or web address]
[2020-04-27 19:14] LABS: ABSOLUTE MONOCYTES (AUTO) 0.3 10^3/uL (0.1-1.4); ABSOLUTE NEUT (AUTO) 4.1 10^3/uL (1.7-8.2); BASOPHILS % (AUTO) 0.3 % (0-2); EOSINOPHILS % (AUTO) 0.4 % (0-6); HEMATOCRIT 44.6 % (37.9-51.0); HEMOGLOBIN 15.2 g/dL (13.5-17.0); LYMPHOCYTES % (AUTO) 30.3 % (13-45); MEAN CORPUSCULAR HEMOGLOBIN 27.9 pg (27.0-33.4); MEAN CORPUSCULAR VOLUME 82 fl (80-97); MONOCYTES % (AUTO) 5.2 % (3-13); PLATELET COUNT 186 10^3/uL (150-450); RED BLOOD COUNT 5.45 10^6/uL (4.35-5.55); RED CELL DISTRIBUTION WIDTH 14.1 % (11.5-14.0); SEGMENTED NEUTROPHILS % (AUTO) 63.8 % (42-78); TOTAL CELLS COUNTED % (AUTO) 100 %; WHITE BLOOD COUNT 6.5 10^3/uL (4.0-10.5)
[2020-04-27 19:32] LABS: ALBUMIN 4.5 g/dL (3.5-5.0); ALKALINE PHOSPHATASE 94 U/L (38-126); ANION GAP 7 (5-19); ASPARTATE AMINO TRANSFERASE 27 U/L (17-59); BILIRUBIN,DIRECT 0.2 mg/dL (0.0-0.4); BILIRUBIN,TOTAL 0.5 mg/dL (0.2-1.3); BLOOD UREA NITROGEN 18 mg/dL (7-20); CALCIUM 9.4 mg/dL (8.4-10.2); CARBON DIOXIDE 33 mmol/L (22-30); CHLORIDE 98 mmol/L (98-107); CREATINE KINASE 138 U/L (55-170); GLUCOSE 100 mg/dL (75-110); POTASSIUM 4.4 mmol/L (3.6-5.0); TOTAL PROTEIN 7.9 g/dL (6.3-8.2)
[2020-04-27 19:44] LABS: CREATINE KINASE MB 0.36 ng/mL (<4.55); TROPONIN I < 0.012 ng/mL
[2020-04-28] MEDS ORDERED: DIAZEPAM 5 MG TABLET PO ONE (00:37)
--- NOTE | 2020-04-28 00:38 | ER Document Report ---
ED General - General Chief Complaint: Chest Pain Stated Complaint: CHEST PAIN Time Seen by Provider: 04/27/20 18:11 Primary Care Provider: DEBBY AYALA MD [ACTIVE STAFF] - Follow up as needed WAYNE ELLIS PA [Primary Care Provider] - Follow up as needed Mode of Arrival: Ambulatory Information source: Patient Notes: 49-year-old male presented to ED for complaint of left chest pain. He states he has had this pain off and on for several years worse for the last 6 months. He states that the last time he was here in February he was sent to Dr. Ayala and Orestes told him he had a left bundle branch block and wanted to do an echocardiogram but the OR would not cover it. He states he did go to the OR recently and they did a echocardiogram 2 weeks ago but have not given him the results. He states today he was doing push-ups and pull-ups and his exercises a nd had a severe cramping to the whole body with cramping in his chest and down his left arm. He states he was worried he was having heart attack. He states his blood pressure was much higher than normal. Constitutional: Negative for fever. HENT: Negative for sore throat. Eyes: Negative for visual changes. Cardiovascular: Patient complains that he has chest pain to the left side since earlier this evening. He states he needs some Valium to calm himself down so he can get relief from this chest pain Respiratory: Negative for shortness of breath. Gastrointestinal: Negative for abdominal pain, vomiting or diarrhea. Genitourinary: Negative for dysuria. Musculoskeletal: Patient has chronic neck and back pain. He also has chronic chest pain. States he is taking methocarbamol and it is like taking water it does not do anything. He states he was on meloxicam and gabapentin but it caused him to have rashes and upset his kidneys which is Bowsher tomorrow so they took him off of him. Now he is not on any medicines but Tylenol. He does take Vistaril for his anxiety and his pain. Skin: Negative for rash. Neurological: Negative for headaches, weakness or numbness. 10 point ROS negative except as marked above and in HPI. VITAL SIGNS: Within normal limits. GENERAL: No acute distress, non-toxic appearance. HEAD: Normal with no signs of head trauma. EYES: PERRLA, EOMI, conjunctiva normal, no discharge. EARS: Hearing grossly intact. NOSE: Normal. THROAT: Oropharynx is normal. NECK: Normal range of motion, no tenderness, supple, no lymphadenopathy, No adenopathy, no JVD. CHEST: Clear breath sounds bilaterally. No wheezes, rales, or rhonchi. CARDIAC: Regular rate and rhythm. S1 and S2, without murmurs, gallops, or rubs. VASCULAR: No Edema. Peripheral pulses normal and equal in all extremities. ABDOMEN: Normal and soft with no tenderness, no masses or pulsatile masses. GASTROINTESTINAL: Bowel sounds normal GENITOURINARY: Normal, No tenderness LYMPATHTIC: No lymphadenopathy noted. MUSCULOSKELETAL: Good range of motion of all major joints. Extremities without clubbing, cyanosis or edema. NEUROLOGICAL: Alert and oriented x 3. No focal sensory or strength deficits. Speech normal. Follows commands appropriately. PSYCHIATRIC: Normal Affect, judgement and mood. SKIN: Normal appearance with no rashes or lesions. TRAVEL OUTSIDE OF THE [place] IN LAST 30 DAYS: No - HPI Onset: This afternoon Onset/Duration: Intermittent Quality of pain: Cramping Severity: Moderate Pain Level: 2 Associated symptoms: Chest pain Exacerbated by: Denies Relieved by: Denies Similar symptoms previously: Yes Recently seen / treated by doctor: Yes - Related Data Allergies/Adverse Reactions: No Known Allergies Allergy (Verified 05/29/17 12:53) Past Medical History - General Information source: Patient - Social History Smoking Status: Former Smoker Frequency of alcohol use: None Drug Abuse: None Lives with: Family Family History: Reviewed & Not Pertinent Patient has suicidal ideation: No Patient has homicidal ideation: No - Past Medical History Cardiac Medical History: Reports: Hx Hypertension Pulmonary Medical History: Reports: None EENT Medical History: Reports: None Neurological Medical History: Reports: Hx Migraine Endocrine Medical History: Reports: None Renal/ Medical History: Reports: None Malignancy Medical History: Reports None GI Medical History: Reports: Hx Gastritis, Hx Gastroesophageal Reflux Disease Musculoskeletal Medical History: Reports Hx Arthritis, Reports Hx Musculoskeletal Deformity, Reports Hx Musculoskeletal Trauma Skin Medical History: Reports None Psychiatric Medical History: Reports: Hx Anxiety, Hx Depression Traumatic Medical History: Reports: None Infectious Medical History: Reports: None Surgical Hx: Negative Past Surgical History: Reports: None - Immunizations Hx Diphtheria, Pertussis, Tetanus Vaccination: No Physical Exam - Vital signs Vitals: Temp Pulse Resp BP Pulse Ox 98.7 F 93 20 150/98 H 100 04/27/20 17:42 04/27/20 17:42 04/27/20 17:42 04/27/20 17:42 04/27/20 17:42 Course - Re-evaluation Re-evalutation: 04/28/20 08:49 Patient was very anxious concerning his chest pain. He kept insistent that there was something different wrong than his normal chest pain. I did discuss this patient times with Dr. Cordoba. He did want Covid and flu test completed. He also recommended a BNP. There was no acute findings on any of these. He will be a person under investigation for the Covid. He was discharged home. He did receive a dose of Valium while in the emergency room because he insisted that he had such muscle cramps. He did state that he had been working out daily even though he does have a history of chest pain and has a senior administrative services officer he is working with through the OR. He states he has had a echocardiogram but does not know the results of this. I did give him Dr. Ayala's name and number if he continues to have chest pain. - Vital Signs Vital signs: Temp Pulse Resp BP Pulse Ox 97.8 F 93 20 128/91 H 96 04/28/20 05:01 04/27/20 17:42 04/28/20 05:01 04/28/20 05:01 04/28/20 05:01 - Laboratory Results Result Diagrams: 04/27/20 18:49 04/27/20 18:49 Laboratory Results Interpreted: 04/27/20 04/27/20 18:49 18:49 RDW 14.1 H Carbon Dioxide 33 H Critical Laboratory Results Reviewed: No Critical Results - Radiology Results Critical Radiology Results Reviewed: No Critical Results Discharge - Discharge Clinical Impression: Person under investigation for COVID-19 Chest pain Qualifiers: Chest pain type: unspecified Qualified Code(s): R07.9 - Chest pain, unspecified Condition: Stable Disposition: HOME, SELF-CARE Instructions: COVID-19 Guidance for Persons Under Investigation Additional Instructions: CHEST PAIN OF UNCLEAR CAUSE: The exact cause of your chest pain isn't clear. Fortunately, there is no evidence of a dangerous medical condition. Further testing may be required to find the source of the pain. Most often, we find that this pain is coming from the chest wall -- the muscles or rib joints in the chest. But chest pain can come from the lung and lung lining, the esophagus, the heart valves or heart lining, and even the stomach or gallbladder. Rest. Eat lightly until the pain is gone. We may prescribe medicine for pain and inflammation. You should call the physician immediately if the pain radiates to the shoulder, jaw or arms; if you start to run a fever or develop a cough; or if you develop shortness of breath, or other new or alarming symptoms. NORMAL EXAM AND WORKUP: At this time, your examination and workup show no significant abnormality. No significant abnormal physical findings were noted. All laboratory, EKG, and imaging (x-ray, CT scans, ultrasound) studies that were ordered show no significant abnormality. Although your examination and all studies that were ordered showed no significant abnormal finding, there are no examinations and no studies that are 100% accurate. There is always the possibility that some abnormality could exist and not be detected with physical examination or within the limits and capabilities of laboratory and other studies. You should return or follow up as you were instructed on your visit today for further evaluation if your symptoms do not resolve. We have given you a written report of your chest x-ray and lab results. Please take these with you to your next appointment with the OR clinic. I have also given you the name and number of Dr. Ayala you stated had seen you before for chest pain. Please discussed the fact that you are doing push-ups and pull-ups and cardio vascular exercises daily and you are continuing to have chest pain. Patient was provided with discharge information including: As a person under investigation for Covid 19, the [place] department of Health and Human Services, division of public health advises you to adhere to the following guidance until your test results are reported to you. If your test result is positive, you will receive additional information from your provider and your local health department at that time. Remain at home until you are cleared by the health provider or public health authorities. Keep a log of visitors to your home, notify any visitors to your home of your isolation status. If you plan to move to a new address or leave the county, notify the local health department in your County. Call your doctor or seek care if you have an urgent medical need. Before seeking medical care, call ahead to get instructions from the provider before arriving at the medical office clinic or hospital. Notify them that you are being tested for the virus that causes Covid 19 so that arrangements can be made, as necessary, to prevent transmission to others in the healthcare setting. Next, notify the local health department in your county. If a medical emergency arises and you need to call 911, inform the first responders that you are being tested for the virus that causes Covid 19. Next, notify the local health department in your county. Forms: Elevated Blood Pressure Referrals: WAYNE ELLIS PA [Primary Care Provider] - Follow up as needed DEBBY AYALA MD [ACTIVE STAFF] - Follow up as needed
[2020-04-28 04:14] LABS: A TYPE INFLUENZA AG NEGATIVE (NEGATIVE); B INFLUENZA AG NEGATIVE (NEGATIVE)
[2020-04-28 05:19] VITALS: BP 128/91
--- NOTE | 2020-04-28 10:30 | EKG REPORT ---
SEVERITY:- NORMAL ECG - SINUS RHYTHM : Confirmed by: Carli Evans 28-Apr-2020 10:29:47
--- NOTE | 2020-04-28 10:30 | EKG REPORT ---
SEVERITY:- NORMAL ECG - SINUS RHYTHM : Confirmed by: Carli Evans 28-Apr-2020 10:29:51
== END 2020-04-28 05:25 | disposition home or self-care (01) ==
LOC: ER 17:32
DX: R07.9 Chest pain, unspecified (principal); M54.2 Cervicalgia; M54.9 Dorsalgia, unspecified; G89.29 Other chronic pain; R25.2 Cramp and spasm; I10 Essential (primary) hypertension; F41.9 Anxiety disorder, unspecified; Z79.899 Other long term (current) drug therapy; Z87.891 Personal history of nicotine dependence; Z20.822 Contact with and (suspected) exposure to COVID-19
CPT/HCPCS: 93005; 99285; 36415; 82553; 82550; 85025; 87635; 80053; 84484; 87804; 83880; 71046; 93010; C9803